=== PATIENT | female | born 1950 | race Caucasian/White ===

== ENCOUNTER → 2020-10-12 | Outpatient (CLI) | payer MEDICARE, OTHER ==
[~2020-10-12] MED LIST: ASPIRIN81 MG PO; AUGMENTIN 875-1 EACH PO; DULERA 100 MCG8.8 GM INH; DUONEBS; ENSURE ORIGINA237 ML PO; ENTRESTO 97 MG1 EACH PO; LEVAQUIN500 MG PO; MEDROL DOSEPAK 24 MG PO; METOPROLOL TART25 MG PO; NEURONTIN 300300 MG PO; NICOTINE PATCH1 EAC1 TD; NORVASC 5 MG TAB5 MG PO; PERCOCET 5-3251 EACH PO; PROAIR HFA8.5 GM INH; PROTONIX40 MG PO; ROBAXIN 750 MG750 MG PO; SPIRIVA18 MCG INH; SYMBICORT 160-1 INHA INH; VENTOLIN HFA 66.7 GM INH; VITAMIN D50000 UNIT PO; ZANTAC150 MG PO
== END ==
LOC: MAMO 05-27 10:00 → EXRD 05-27 10:00 → MAMO 05-27 10:30 → EXRD 06-24 14:00 → MAMO 14:00
DX: Z12.31 Encounter for screening mammogram for malignant neoplasm of breast (principal); R25.2 Cramp and spasm; I10 Essential (primary) hypertension; M85.88 Other specified disorders of bone density and structure, other site
CPT/HCPCS: 77063; 77067; 77080

== ENCOUNTER → 2020-12-31 | Outpatient (CLI) | payer MEDICARE, OTHER | LOC: EXRD 12-20 13:00 → KOH-I 15:00 → EXRD 15:00 → KOH-I 15:57 | DX: R25.2 Cramp and spasm (principal); I10 Essential (primary) hypertension | CPT/HCPCS: 93925 ==

== ENCOUNTER → 2022-01-26 | Outpatient (CLI) | payer MEDICARE, OTHER | LOC: KOH-I 13:36 | DX: J44.9 Chronic obstructive pulmonary disease, unspecified (principal); M54.2 Cervicalgia; M54.50 Low back pain, unspecified; E21.3 Hyperparathyroidism, unspecified; E83.52 Hypercalcemia; R60.9 Edema, unspecified; R51.9 Headache, unspecified; R63.6 Underweight; M47.812 Spondylosis without myelopathy or radiculopathy, cervical region; M47.814 Spondylosis without myelopathy or radiculopathy, thoracic region; M47.816 Spondylosis without myelopathy or radiculopathy, lumbar region | CPT/HCPCS: 72040; 72070; 72100 ==

== ENCOUNTER → 2022-03-03 | Outpatient (CLI) | payer MEDICARE, OTHER ==
[2022-03-03 08:39] LABS: BUN/CREATININE RATIO 19 (0-10)
== END ==
LOC: CT 07:44
PROVIDERS: Internal Medicine Hematology & Oncology
DX: D50.9 Iron deficiency anemia, unspecified (principal); D51.8 Other vitamin B12 deficiency anemias; R63.4 Abnormal weight loss; E83.52 Hypercalcemia
CPT/HCPCS: 36415; 70492; 71270; 80053; Q9967